=== PATIENT | female | born 1930 | race African-American/Black ===

== ENCOUNTER 2017-11-13 21:28 | Inpatient (IN) | payer OTHER, MEDICAID ==
[~2017-11-13] VITALS: Ht 172.7 cm; Wt 58.1 kg
[2017-11-13] MEDS ORDERED: ASPIRIN 325MG TABLET PO ONE (22:30)
[2017-11-13 23:32] LABS: BASOPHILS % 0.6 % (0.0-2.0); EOSINOPHILS % 3.6 % (0.0-5.0); HEMATOCRIT. 35.5 % (36.0-48.0); LYMPHOCYTES % 42.8 % (20.0-50.0); MEAN CORPUSCULAR HEMOGLOBIN 30.2 pg (28.0-32.0); MEAN CORPUSCULAR VOLUME 89.4 fL (81.0-99.0); MEAN PLATELET VOLUME 6.3 fl (7.4-10.4); MONOCYTES % 8.5 % (2.0-8.0); NEUTROPHILS % 44.5 % (40.0-76.0); PLATELET 214 x1000/uL (130-400); RED BLOOD CELL COUNT 3.97 mill/uL (4.2-5.4); RED CELL DISTRIBUTION WIDTH 14.3 % (11.6-14.6)
[2017-11-13 23:36] LABS: PROTHROMBIN TIME 9.7 sec (9.1-11.1)
[2017-11-13 23:37] LABS: CHLORIDE 96 mEq/L (98-107)
[2017-11-13 23:43] LABS: CLARITY URINE CLEAR (CLEAR); COLOR URINE YELLOW (YELLOW); KETONES URINE NEGATIVE (NEGATIVE); LEUKOCYTE ESTERASE URINE NEGATIVE (NEGATIVE); NITRITE URINE NEGATIVE (NEGATIVE); OCCULT BLOOD URINE NEGATIVE (NEGATIVE); PH URINE 8.5 (4.5-8.0); PROTEIN URINE NEGATIVE (NEGATIVE); SPECIFIC GRAVITY URINE 1.002 (1.005-1.030); UROBILINOGEN URINE 0.2 E.U./dL (0.2-1.0)
[2017-11-14] VITALS (7 sets, daily range): BP systolic 104–160; BP diastolic 39–62
[2017-11-14] MEDS ORDERED: MAGNESIUM/ALUMINUM HYDROXIDE/SIMETHICONE 30ML UDC PO PRN (04:15)
[2017-11-14] MEDS ORDERED: CLONIDINE 0.1MG TABLET PO PRN (04:15)
[2017-11-14] MEDS ORDERED: ACETAMINOPHEN 325MG TABLET PO PRN (04:15)
[2017-11-14] MEDS ORDERED: MORPHINE SULFATE 4 MG/ML CPJ (NOT FOR IM USE) IV PRN (04:15)
[2017-11-14] MEDS ORDERED: ONDANSETRON HCL 4MG/2ML INJ IV PRN (04:15)
[2017-11-14] MEDS ORDERED: GUAIFENESIN 200MG/10ML SUGAR FREE UDC PO PRN (04:15)
[2017-11-14] MEDS ORDERED: DOCUSATE SODIUM 100MG CAPSULE PO PRN (04:15)
[2017-11-14] MEDS ORDERED: HYDROCODONE/ACETAMINOPHEN 5/325MG TABLET PO PRN (04:15)
[2017-11-14] MEDS ORDERED: NA PHOS,M-B/NA PHOS,DI-BA ENEMA 118ML PR PRN (04:15)
[2017-11-14] MEDS ORDERED: POTASSIUM CHLORIDE 20MEQ TABLET SR PO SCH (05:26)
[2017-11-14] MEDS ORDERED: ENOXAPARIN 40MG/0.4ML SYR SUBCUT SCH (09:00)
[2017-11-14] MEDS ORDERED: ASPIRIN 81MG EC TABLET PO SCH (09:00)
[2017-11-14] MEDS ORDERED: AMLODIPINE 10MG TABLET PO SCH (09:00)
[2017-11-14 10:06] LABS: CREATINE KINASE 61 IU/L (26-192)
[2017-11-14 16:30] LABS: CREATINE KINASE 58 IU/L (26-192)
== END 2017-11-14 23:15 | disposition short-term general hospital (02) | DRG 282 ==
LOC: EDSEX 21:28 → ER 22:17 → UNDOADMIN 11-14 00:41 → 7WST 11-14 00:41 → EDBEDREQTM 11-14 00:42 → EDBEDREQ 11-14 00:42 → ENRESERV 11-14 02:28 → SUPCPDRO 11-14 04:11
PROVIDERS: ADMIT Hospitalist; ATTEND Hospitalist
DX: I21.9 Acute myocardial infarction, unspecified (principal); I24.9 Acute ischemic heart disease, unspecified; I25.10 Atherosclerotic heart disease of native coronary artery without angina pectoris; F03.90 Unspecified dementia, unspecified severity, without behavioral disturbance, psychotic disturbance, mood disturbance, and anxiety; I10 Essential (primary) hypertension; E87.6 Hypokalemia
CPT/HCPCS: 36415; 71045; 80053; 81003; 82550; 83605; 83690; 83880; 84484; 85025; 85610; 93005; 93306; 93970; 99285; J1650

== ENCOUNTER 2018-10-17 03:14 | Emergency (ER) | payer OTHER, MEDICAID ==
[~2018-10-17] VITALS: Ht 170.2 cm; Wt 66.0 kg
[2018-10-17] MEDS ORDERED: KETOROLAC 30MG/ML VIAL IV STA (04:16)
[2018-10-17 04:57] LABS: BASOPHILS % 0.4 % (0.0-2.0); HEMATOCRIT. 35.7 % (36.0-48.0); HEMOGLOBIN. 11.9 g/dL (12.0-16.0); LYMPHOCYTES % 39.7 % (20.0-50.0); MEAN CORPUSCULAR VOLUME 89.9 fL (81.0-99.0); MEAN PLATELET VOLUME 6.3 fl (7.4-10.4); MONOCYTES % 5.1 % (2.0-8.0); NEUTROPHILS % 53.8 % (40.0-76.0); PLATELET 181 x1000/uL (130-400); RED BLOOD CELL COUNT 3.97 mill/uL (4.2-5.4); RED CELL DISTRIBUTION WIDTH 15.5 % (11.6-14.6)
[2018-10-17 05:05] LABS: CHLORIDE 103 mEq/L (98-107)
[2018-10-17] MEDS ORDERED: ACETAMINOPHEN 500MG TABLET PO ONE (06:00)
[2018-10-17 06:51] VITALS: BP 180/82
== END 2018-10-17 06:53 | disposition home or self-care (01) ==
LOC: ER 03:14
DX: R05 Cough (principal); R06.02 Shortness of breath; R91.1 Solitary pulmonary nodule; E11.9 Type 2 diabetes mellitus without complications; I10 Essential (primary) hypertension; I25.2 Old myocardial infarction; Z86.73 Personal history of transient ischemic attack (TIA), and cerebral infarction without residual deficits; I25.10 Atherosclerotic heart disease of native coronary artery without angina pectoris
CPT/HCPCS: 36415; 71045; 80053; 83605; 83880; 84484; 85025; 87040; 93005; 96374; 99284; J1885